=== PATIENT | female | born 1955 | race Two or more races ===

== ENCOUNTER 2021-12-28 13:53 | Emergency (ER) | payer OTHER, MEDICARE ==
[~2021-12-28] VITALS: Ht 162.6 cm; Wt 61.2 kg
[2021-12-28 15:51] VITALS: BP 178/65
== END 2021-12-28 16:31 | disposition home or self-care (01) ==
LOC: ER 13:53
DX: S46.911A Strain of unspecified muscle, fascia and tendon at shoulder and upper arm level, right arm, initial encounter (principal); S00.03XA Contusion of scalp, initial encounter; I10 Essential (primary) hypertension; E11.9 Type 2 diabetes mellitus without complications; E78.5 Hyperlipidemia, unspecified; W18.39XA Other fall on same level, initial encounter; Y93.89 Activity, other specified; Y92.89 Other specified places as the place of occurrence of the external cause; Y99.8 Other external cause status
CPT/HCPCS: 70450; 73030

== ENCOUNTER 2022-02-17 17:42 | Inpatient (IN) | payer MEDICARE, OTHER ==
[~2022-02-17] VITALS: Ht 165.1 cm; Wt 62.9 kg
[2022-02-17 19:00] LABS: Basophils # (auto) 0.1 10 ^3/uL (0-0.2); Eosinophils # (auto) 0.4 10 ^3/uL (0-0.8); Eosinophils % (auto) 4.4 % (0.0-7.0); Hematocrit 38.7 % (36.0-46.0); Hemoglobin 13.1 g/dL (12.2-16.2); Lymphocytes # (auto) 3.2 10 ^3/uL (0.4-5.4); Lymphocytes % (auto) 34.5 % (10.0-50.0); Mean Corpuscular Hemoglobin 29.6 pg (28.0-32.0); Mean Corpuscular Volume 87.1 fL (80.0-100.0); Monocytes # (auto) 0.5 10 ^3/uL (0-1.3); Monocytes % (auto) 4.9 % (0.0-12.0); Neutrophils # (auto) 5.2 10 ^3/uL (1.6-8.6); Neutrophils % (auto) 55.2 % (37.0-80.0); Nucleated Red Blood Cells % 0.1 %; Red Blood Cells 4.44 10^6/uL (4.0-5.20); Red Cell Distribution Width 13.5 % (11.8-14.3); White Blood Cell 9.4 10^3/uL (4.4-10.8)
[2022-02-17 19:19] LABS: Albumin 4.4 g/dL (3.4-5.0); BUN/Creatinine Ratio 14.1; Calcium 10.2 mg/dL (8.5-10.1); Potassium 4.1 mmol/L (3.5-5.1)
[2022-02-17 19:22] LABS: Bilirubin, Total 0.4 mg/dL (0.2-1.0); INR 1.19 (0.9-1.15); Partial Thromboplastin Time 28.5 sec (23.6-33.0); Total Protein 8.1 g/dL (6.4-8.2)
[2022-02-17 19:50] LABS: Urine Bacteria NONE SEEN /hpf (None Seen); Urine Blood Negative /uL (Negative); Urine Specific Gravity 1.014 (1.001-1.035); Urine WBC 23 /hpf (0 - 5)
[2022-02-17] MEDS ORDERED: NITROGLYCERIN 0.4 MG SL TAB SL PRN (23:15)
[2022-02-17] MEDS ORDERED: DEXTROSE (50%) 50ML SYRG IV PRN (23:15)
[2022-02-17] MEDS ORDERED: ONDANSETRON HCL 4 MG/2 ML VIAL IV PRN (23:15)
[2022-02-17] MEDS ORDERED: cefTRIAXone 1GM/50ML D5W 50 ML IV ONE (23:15)
[2022-02-17] MEDS ORDERED: MORPHINE SULFATE INJECTION 2 MG/ML SYRG IV PRN (23:15)
[2022-02-18] MEDS: ACCU-CHEK COMFORT CURVE STRIP VI SCH ×5 (00:01→21:37)
[2022-02-18] MEDS: InsuLIN REG 1unit/0.01ml Soln (100units/ml) SC SCH ×5 (00:03→21:47)
[2022-02-18] MEDS: SODIUM CHLORIDE 0.9% 1,000 ML IV SCH ×2 (00:34→13:02)
[2022-02-18 03:10] VITALS: BP 125/90
[2022-02-18 03:54] VITALS: BP 125/90
[2022-02-18 05:00] VITALS: BP 126/68
[2022-02-18 06:29] LABS: Basophils # (auto) 0.1 10 ^3/uL (0-0.2); Eosinophils # (auto) 0.3 10 ^3/uL (0-0.8); Hematocrit 37.1 % (36.0-46.0); Hemoglobin 12.6 g/dL (12.2-16.2); Lymphocytes # (auto) 3.1 10 ^3/uL (0.4-5.4); Lymphocytes % (auto) 33.7 % (10.0-50.0); Mean Corpuscular Hemoglobin 29.7 pg (28.0-32.0); Mean Corpuscular Hgb Conc. 34.1 g/dL (32.0-36.0); Monocytes # (auto) 0.5 10 ^3/uL (0-1.3); Monocytes % (auto) 5.9 % (0.0-12.0); Neutrophils # (auto) 5.2 10 ^3/uL (1.6-8.6); Neutrophils % (auto) 56.4 % (37.0-80.0); Nucleated Red Blood Cells % 0.1 %; Red Blood Cells 4.26 10^6/uL (4.0-5.20); Red Cell Distribution Width 13.6 % (11.8-14.3); White Blood Cell 9.2 10^3/uL (4.4-10.8)
[2022-02-18 06:56] LABS: BUN/Creatinine Ratio 16.9; Calcium 9.6 mg/dL (8.5-10.1)
[2022-02-18 09:00] VITALS: BP 131/69
[2022-02-18] MEDS: cefTRIAXone 1GM/50ML D5W 50 ML IV SCH (09:12)
[2022-02-18] MEDS ORDERED: PANTOPRAZOLE 40 MG/10 ML VIAL INJ IV SCH (10:00)
[2022-02-18] MEDS ORDERED: fentaNYL CITRATE 100 MCG/2 ML VL ONE (10:04)
[2022-02-18] MEDS ORDERED: VANCOMYCIN HCL 1000 MG VL ONE (10:04)
[2022-02-18] MEDS ORDERED: MIDAZOLAM HCL 2MG/2ML 2ml VIAL (1mg/ml) ONE (10:04)
[2022-02-18] MEDS ORDERED: VANCOMYCIN 1GM/250ML 250 ML IV ONE (10:05)
[2022-02-18] MEDS ORDERED: LIDOCAINE 2%HCL (LOCAL ANESTH.) INJ 10ml MDV ONE ×2 (10:05→10:30)
[2022-02-18] MEDS ORDERED: HEPARIN IN NS 1000Units/500mL 0 ML ONE (10:05)
[2022-02-18 16:38] VITALS: BP 126/72
[2022-02-18] MEDS: HYDROcodone-ACET 5/325MG TAB PO PRN ×2 (17:23→23:22)
[2022-02-18 19:28] LABS: Free T3 1.62 pg/mL (2.3-4.2)
[2022-02-18] MEDS: VANCOMYCIN 1GM/250ML 250 ML IV SCH (21:34)
[2022-02-18 22:00] VITALS: BP 117/70
[2022-02-19 05:00] VITALS: BP 130/68
[2022-02-19 05:47] LABS: Potassium 4.2 mmol/L (3.5-5.1)
[2022-02-19 05:50] LABS: BUN/Creatinine Ratio 23.9
[2022-02-19] MEDS: ACCU-CHEK COMFORT CURVE STRIP VI SCH ×2 (06:08→12:11)
[2022-02-19] MEDS: InsuLIN REG 1unit/0.01ml Soln (100units/ml) SC SCH ×2 (06:08→12:12)
[2022-02-19 08:00] VITALS: BP 131/70
[2022-02-19 09:00] VITALS: BP 131/70
[2022-02-19] MEDS: cefTRIAXone 1GM/50ML D5W 50 ML IV SCH (09:23)
[2022-02-19] MEDS: HYDROcodone-ACET 5/325MG TAB PO PRN (09:28)
[2022-02-19] MEDS: VANCOMYCIN 1GM/250ML 250 ML IV SCH (10:18)
[2022-02-19 12:58] VITALS: BP 125/70
[2022-02-19] MEDS ORDERED: CEPH-322 PO (13:55)
[2022-02-19] MEDS ORDERED: HYDR1TAB97 PO (13:55)
[2022-02-19 15:33] VITALS: BP 125/70
[2022-02-19 15:36] LABS: Free T4 (Free Thyroxine) 0.91 ng/dL (0.89-1.76)
== END 2022-02-19 17:52 | disposition home or self-care (01) | DRG 243 ==
LOC: ER 17:42 → TELE-WESTW 23:07
PROVIDERS: ADMIT Nurse Practitioner; ATTEND Internal Medicine
PROC: 0JH606Z Insertion of Pacemaker, Dual Chamber into Chest Subcutaneous Tissue and Fascia, Open Approach (ICD-10-PCS; principal; 2022-02-18)
PROC: 02HK3JZ Insertion of Pacemaker Lead into Right Ventricle, Percutaneous Approach (ICD-10-PCS; 2022-02-18)
PROC: 02H63JZ Insertion of Pacemaker Lead into Right Atrium, Percutaneous Approach (ICD-10-PCS; 2022-02-18)
DX: I49.5 Sick sinus syndrome (principal); N39.0 Urinary tract infection, site not specified; D68.69 Other thrombophilia; I48.0 Paroxysmal atrial fibrillation; I49.9 Cardiac arrhythmia, unspecified; E11.9 Type 2 diabetes mellitus without complications; I10 Essential (primary) hypertension; Z20.822 Contact with and (suspected) exposure to COVID-19; E03.9 Hypothyroidism, unspecified; E78.5 Hyperlipidemia, unspecified; Z79.84 Long term (current) use of oral hypoglycemic drugs
CPT/HCPCS: 33208; 36415; 71045; 80048; 80053; 81001; 82962; 84439; 84443; 84481; 84484; 85025; 85610; 85730; 87086; 93005; 93306; 96365; 99152; 99153; C1785; C9113; G0378; J0696; J1815; J2001; J2250

== ENCOUNTER → 2024-01-18 | Day surgery (SDC) | payer MEDICARE, OTHER ==
[~2024-01-18] VITALS: Ht 160 cm; Wt 57.6 kg
[~2024-01-18] MED LIST: AMIO200T33 PO; AMLO1TAB22 PO; APIX5TAB PO; EMPA1TAB PO; FENO160T PO; LEVO50TA7 PO; LIDOCAINE VISCOUS 2% 15ML UD PO ONE; METF-370 PO; MIDAZOLAM HCL 2MG/2ML 2ml VIAL (1mg/ml) ONE; SIMV10TA20 PO; SITA50TA PO; fentaNYL CITRATE 100 MCG/2 ML VL ONE
== END | disposition home or self-care (01) ==
LOC: CATH 06:54
PROVIDERS: ATTEND Internal Medicine
DX: I48.91 Unspecified atrial fibrillation (principal); Z53.8 Procedure and treatment not carried out for other reasons; I10 Essential (primary) hypertension; E11.9 Type 2 diabetes mellitus without complications; Z79.899 Other long term (current) drug therapy; Z95.0 Presence of cardiac pacemaker; Z86.73 Personal history of transient ischemic attack (TIA), and cerebral infarction without residual deficits; Z98.890 Other specified postprocedural states
CPT/HCPCS: 93005; J7030; J2250